=== PATIENT | male | born 1945 | race Caucasian/White ===

== ENCOUNTER 2017-10-05 06:30 | Emergency (ER) | payer OTHER ==
[~2017-10-05] VITALS: Ht 182.9 cm; Wt 84.1 kg
[2017-10-05 06:46] VITALS: BP 173/92; PULSE 90; RESP 16; O2SAT 95
[2017-10-05] MEDS ORDERED: CARV6.252 PO (07:29)
[2017-10-05 07:30] VITALS: BP 138/76; PULSE 87; RESP 16; RESP 18; TEMP 97.7; O2SAT 97; O2SAT 98
--- NOTE | 2017-10-05 07:39 | PD ---
HPI Chief Complaint: Altered Mental Status Time Seen by Provider: 07:11 Travel History International Travel<30 days: No Contact w/Intl Traveler<30days: No Traveled to known affect area: No History of Present Illness HPI Patient was brought in by paramedics, as he was found sleeping in his car while in the [employer] parking lot with his car running and in gear. At the time he cannot provide his address or contact information. At 7:30 AM patient was able to communicate and he understands that he forgot his address, but now he knows it. States that he lives in private home, drives a vehicle and lives in [place]. Allergies on record 2 (Zosyn, Levaquin, tizanidine Past medical history significant for Parkinson's, peripheral vascular disease, CABG, with internal defibrillator, hypertension, diabetes and seizures PFSH Past Medical History Cardiovascular Problems: Yes (PVD) Diabetes: Yes Patient Takes Glucophage: No Hypertension: Yes Parkinson's Disease: Yes Seizures: Yes Past Surgical History AICD: Yes Coronary Artery Bypass Graft: Yes Other Surgery: Yes Social History Alcohol Use: No Tobacco Use: No Substance Use: No Allergies-Medications (Allergen,Severity, Reaction): Coded Allergies: levofloxacin (Verified Allergy, Unknown, RASH, 10/05/17) pentazocine (Verified Allergy, Unknown, RASH, 10/05/17) tizanidine (Verified Allergy, Unknown, RASH, 10/05/17) Reported Meds & Prescriptions Reported Meds & Active Scripts Active Reported Coumadin (Warfarin) 4 Mg Tab 4 Mg PO DAILY Carvedilol 6.25 Mg Tab 6.25 Mg PO BID Review of Systems ROS Limitations: Altered Mental Status (Confusion) Physical Exam Exam Limitations: Altered Mental Status Narrative GENERAL: SKIN: Warm and dry. HEAD: Atraumatic. Normocephalic. EYES: Pupils equal and round. No scleral icterus. No injection or drainage. ENT: No nasal bleeding or discharge. Mucous membranes pink and moist. NECK: Trachea midline. No JVD. CARDIOVASCULAR: Regular rate and rhythm. RESPIRATORY: No accessory muscle use. Clear to auscultation. Breath sounds equal bilaterally. GASTROINTESTINAL: Abdomen soft, non-tender, nondistended. Hepatic and splenic margins not palpable. MUSCULOSKELETAL: Extremities without clubbing, cyanosis, or edema. No obvious deformities. NEUROLOGICAL: Awake and alert. No obvious cranial nerve deficits. Motor grossly within normal limits. Five out of 5 muscle strength in the arms and legs. Normal speech. The patient is a and O 4, patient understands that he is in [facility], in the hospital, it is 2018 and Mary Kay is president. PSYCHIATRIC: Appropriate mood and affect; insight and judgment normal. Data Data Last Documented VS Vital Signs Date Time Temp Pulse Resp B/P (MAP) Pulse Ox O2 Delivery O2 Flow Rate FiO2 10/05/17 12:00 97.8 94 16 134/67 (89) 99 Room Air Orders Orders Complete Blood Count With Diff (10/05/17 07:11) Basic Metabolic Panel (Bmp) (10/05/17 07:11) Urinalysis - C+S If Indicated (10/05/17 07:11) Chest, Single Ap (10/05/17 07:11) Ct Brain W/O Iv Contrast(Rout) (10/05/17 07:11) Iv Access Insert/Monitor (10/05/17 07:11) Ecg Monitoring (10/05/17 07:11) Oximetry (10/05/17 07:11) Blood Glucose (10/05/17 07:11) Drug Screen, Random Urine (10/05/17 07:11) Alcohol (Ethanol) (10/05/17 07:11) Sodium Chlorid 0.9% 500 Ml Inj (Ns 500 M (10/05/17 10:30) Ed Discharge Order (10/05/17 15:45) Labs Laboratory Tests Test 10/05/17 07:30 10/05/17 09:40 White Blood Count 13.4 TH/MM3 Red Blood Count 4.92 MIL/MM3 Hemoglobin 13.5 GM/DL Hematocrit 40.7 % Mean Corpuscular Volume 82.8 FL Mean Corpuscular Hemoglobin 27.5 PG Mean Corpuscular Hemoglobin Concent 33.2 % Red Cell Distribution Width 16.8 % Platelet Count 223 TH/MM3 Mean Platelet Volume 8.2 FL Neutrophils (%) (Auto) 74.3 % Lymphocytes (%) (Auto) 17.6 % Monocytes (%) (Auto) 7.0 % Eosinophils (%) (Auto) 0.5 % Basophils (%) (Auto) 0.6 % Neutrophils # (Auto) 10.0 TH/MM3 Lymphocytes # (Auto) 2.4 TH/MM3 Monocytes # (Auto) 0.9 TH/MM3 Eosinophils # (Auto) 0.1 TH/MM3 Basophils # (Auto) 0.1 TH/MM3 CBC Comment DIFF FINAL Differential Comment Blood Urea Nitrogen 19 MG/DL Creatinine 1.32 MG/DL Random Glucose 176 MG/DL Calcium Level 9.3 MG/DL Sodium Level 137 MEQ/L Potassium Level 4.3 MEQ/L Chloride Level 100 MEQ/L Carbon Dioxide Level 29.0 MEQ/L Anion Gap 8 MEQ/L Estimat Glomerular Filtration Rate 54 ML/MIN Ethyl Alcohol Level LESS THAN 3 MG/DL Urine Color YELLOW Urine Turbidity CLEAR Urine pH 7.0 Urine Specific [place] 1.013 Urine Protein 100 mg/dL Urine Glucose (UA) 70 mg/dL Urine Ketones NEG mg/dL Urine Occult Blood NEG Urine Nitrite NEG Urine Bilirubin NEG Urine Urobilinogen LESS THAN 2.0 MG/DL Urine Leukocyte Esterase NEG Urine RBC 2 /hpf Urine WBC 1 /hpf Urine Mucus FEW /lpf Microscopic Urinalysis Comment CULT NOT INDICATED Urine Opiates Screen NEG Urine Barbiturates Screen NEG Urine Amphetamines Screen NEG Urine Benzodiazepines Screen NEG Urine Cocaine Screen NEG Urine Cannabinoids Screen NEG MDM Medical Decision Making Medical Screen Exam Complete: Yes Emergency Medical Condition: Yes Medical Record Reviewed: Yes Differential Diagnosis Intracranial hemorrhage versus hypoglycemia versus electrolyte imbalance versus intoxication versus dementia type confusion Narrative Course Spoke with his who states that he occasionally has these dementia forgetfulness episodes and is not that unusual. However this is the first time that he has driven from [place] the way to [facility]. is aware that patient is here, being evaluated and if needed and he is cleared medically that she will arrange transportation in some way back home. I made aware that the patient appears to be alert and oriented 4 at this present time and does not appear to be confused. The does corroborate the story that the patient gave of going to the pharmacy to last picker medications as the original intent of the trip. Chest x-ray read by radiologist as no evidence of acute airspace disease or significant congestion, status post CABG and aICD in place CBC shows reactive leukocytosis without left shift, no anemia, normal platelet count BMP shows normal electrolytes, some elevated BUN to creatinine ratio consistent with prerenal azotemia likely from dehydration. UA is negative for any evidence of UTI, however he does show some glucosuria without ketonuria. Alcohol level negative, tox screen negative At 1546 patient's Miranda presented in person and will be driving her back to [place] where she will take the patient to a neurologist so he can finish getting his EEG and further evaluation for his dementia. She will be taking away hiS car keys and his license until he gets further evaluation. I advised the that this is a very parmar decision, especially since he can either get into an accident fatal accident or he can end up lost in another state Diagnosis Primary Impression: Dementia type acute confusion resolved Patient Instructions: Dementia (ED), General Instructions Additional Instructions: PATIENT IS RELEASED TO HIS WHO WILL TRANSPORT HIM BACK TO [facility]. Disposition: 01 DISCHARGE HOME Condition: Stable Dario Rebollar MD Oct 05, 2017 07:39
[2017-10-05] MEDS ORDERED: COUM4TAB PO (07:40)
--- NOTE | 2017-10-05 07:42 | RADRPT ---
EXAM DATE/TIME: 10/05/2017 07:23 [facility] COMPARISON: No previous studies available for comparison. INDICATIONS : Chest pain for about an hour. MEDICAL HISTORY : Uknown SURGICAL HISTORY : Pacemaker. ENCOUNTER: Initial ACUITY: 1 day PAIN SCORE: 4/10 LOCATION: Left chest FINDINGS: The lung bases are hypoaerated. Lungs are free of significant airspace disease or congestion. Heart is mildly enlarged. There is evidence of prior CABG. ICD devices noted in place. CONCLUSION: 1. Hypoaerated lungs. 2. No evidence of acute air space disease or significant congestion. 3. Status post CABG. 4. ICD in place. Reji Mathew MD on October 05, 2017 at 7:39 Board Certified Radiologist. This report was verified electronically.
[2017-10-05 07:59] LABS: BASOPHIL # 0.1 TH/MM3 (0-0.2); BASOPHIL % 0.6 % (0.0-2.0); EOSINOPHIL # 0.1 TH/MM3 (0-0.4); EOSINOPHIL % 0.5 % (0.0-4.0); HEMATOCRIT 40.7 % (39.0-51.0); HEMOGLOBIN 13.5 GM/DL (13.0-17.0); LYMPH % 17.6 % (9.0-44.0); LYMPHOCYTE # 2.4 TH/MM3 (1.0-4.8); MEAN CELL VOLUME 82.8 FL (80.0-100.0); MEAN CORPUSCULAR HEMOGLOBIN 27.5 PG (27.0-34.0); MEAN CORPUSCULAR HGB CONC 33.2 % (32.0-36.0); MEAN PLATELET VOLUME 8.2 FL (7.0-11.0); MONOCYTE # 0.9 TH/MM3 (0-0.9); NEUT % 74.3 % (16.0-70.0); PLATELET COUNT 223 TH/MM3 (150-450); RED BLOOD COUNT 4.92 MIL/MM3 (4.50-5.90); RED CELL DISTRIBUTION WIDTH 16.8 % (11.6-17.2); WHITE BLOOD COUNT 13.4 TH/MM3 (4.0-11.0)
[2017-10-05 08:43] LABS: BLOOD UREA NITROGEN 19 MG/DL (7-18); CALCIUM 9.3 MG/DL (8.5-10.1); CHLORIDE 100 MEQ/L (98-107); CREATININE 1.32 MG/DL (0.60-1.30); GLOMERULAR FILTRATION RATE 54 ML/MIN (>89); GLUCOSE,RANDOM 176 MG/DL (74-106); SODIUM (NA) 137 MEQ/L (136-145)
--- NOTE | 2017-10-05 09:29 | RADRPT ---
EXAM DATE/TIME: 10/05/2017 09:09 [facility] COMPARISON: No previous studies available for comparison. INDICATIONS : Altered mental status, confusion. RADIATION DOSE: 56.35 CTDIvol (mGy) MEDICAL HISTORY : Parkinson's. Hypertension. Diabetes mellitus type 2. SURGICAL HISTORY : CABG Defibrillator. ENCOUNTER: Initial ACUITY: 1 day PAIN SCALE: 0/10 LOCATION: cranial TECHNIQUE: Multiple contiguous axial images were obtained of the head. Using automated exposure control and adj ustment of the mA and/or kV according to patient size, radiation dose was kept as low as reasonably a chievable to obtain optimal diagnostic quality images. DICOM format image data is available electro nically for review and comparison. FINDINGS: CEREBRUM: The CSF spaces are enlarged. No evidence of midline shift, mass lesion, hemorrhage or acute infarcti on. No extra-axial fluid collections are seen. POSTERIOR FOSSA: The cerebellum and brainstem are intact. The 4th ventricle is midline. The cerebellopontine angle i s unremarkable. EXTRACRANIAL: The visualized portion of the orbits is intact. SKULL: The calvaria is intact. No evidence of skull fracture. CONCLUSION: 1. Age related volume loss. 2. No evidence of acute stroke, hemorrhage, mass or edema. Reji Mathew MD on October 05, 2017 at 9:26 Board Certified Radiologist. This report was verified electronically.
[2017-10-05 09:38] VITALS: BP 160/75; PULSE 87; RESP 16; TEMP 97.8; O2SAT 99
[2017-10-05 10:06] LABS: BILIRUBIN, URINE NEG (NEG); BLOOD, URINE NEG (NEG); GLUCOSE,URINE 70 mg/dL (NEG); KETONE, URINE NEG (NEG); MUCUS URINE FEW /lpf (OCC); NITRITE,URINE NEG (NEG); URINE COLOR YELLOW (YELLW/STRAW); URINE LEUKOCYTE ESTERASE NEG (NEG)
[2017-10-05] MEDS ORDERED: SODIUM CHLORID 0.9% 500 ML INJ 500 ML IV ONE (10:30)
[2017-10-05 12:00] VITALS: BP 134/67; PULSE 94; RESP 16; TEMP 97.8; O2SAT 99
[2017-10-05 16:00] VITALS: BP 130/82; TEMP 97.8
== END 2017-10-05 16:00 | disposition home or self-care (01) ==
LOC: NEPC 06:30
DX: G20 Parkinson's disease (principal); F02.81 Dementia in other diseases classified elsewhere, unspecified severity, with behavioral disturbance; I73.9 Peripheral vascular disease, unspecified; I10 Essential (primary) hypertension; E11.9 Type 2 diabetes mellitus without complications; Z91.83 Wandering in diseases classified elsewhere; Z95.1 Presence of aortocoronary bypass graft; Z95.810 Presence of automatic (implantable) cardiac defibrillator
CPT/HCPCS: 70450; 71045; 80048; 80307; 81001; 85025; 96360; 99285; J7040